=== PATIENT | male | born 1940 | race Caucasian/White ===

== ENCOUNTER → 2023-09-18 13:26 | Outpatient (REF) | payer MEDICARE, SELFPAY | LOC: HO.SL 13:26 | PROVIDERS: PCP Internal Medicine; Visit Provider Internal Medicine | DX: Z13.89 Encounter for screening for other disorder (principal) | CPT/HCPCS: 95806 ==

== ENCOUNTER → 2023-11-15 13:51 | Outpatient (REF) | payer MEDICARE, SELFPAY | LOC: HO.SL 13:51 | PROVIDERS: PCP Internal Medicine; Visit Provider Internal Medicine | DX: G47.33 Obstructive sleep apnea (adult) (pediatric) (principal); R06.83 Snoring; R53.83 Other fatigue | CPT/HCPCS: 95806 ==

== ENCOUNTER → 2023-11-15 19:00 | Outpatient (BNV) | payer MEDICARE, SELFPAY | PROVIDERS: PCP Internal Medicine; Visit Provider Internal Medicine | DX: G47.33 Obstructive sleep apnea (adult) (pediatric) (principal) | CPT/HCPCS: 95806 ==

== ENCOUNTER 2024-03-19 10:11 | Outpatient (AMB) | payer MEDICARE, SELFPAY ==
--- NOTE | 2024-03-19 10:12 | A.OFFVIS_ITS ---
Vital Signs 03/19/24 10:15 Height 5 ft 9 in Weight 174 lb 2.643 oz BMI 25.7 BP 112/58 L Blood Pressure Location Rt brachial Position Sitting Respiration 14 Pulse 70 Pulse Source Pulse Oximeter Pulse Oximetry (%) 95 Oxygen Delivery Method Room Air Intake Visit Reasons: Sleep apnea Intake Note: Patient comes in for initial visit. Accompanied by: Spouse Allergies No Known Allergies Allergy (Verified 03/19/24 10:48) Medication List - Last Reconciled 03/19/24 by Mary Kate Tilley MD gabapentin 300 mg PO TID irbesartan 75 mg PO QAM omeprazole 20 mg PO QAM simvastatin 40 mg PO QPM Do you need a note to return to daycare/school/sports/work: No HPI HPI Sleep apnea: Details: 83 years old gentleman, is here being seen for the 1st time in relation to his sleep. According to his he has been snoring heavy at nighttime for the last 20+ years. Lately it is getting more pronounced, to the point that she has moved to a different room for sleeping. He claims that he sleeps throughout the night but according to his he can stay in the bed for 10 hours when when he wakes up he is still tired. He had COVID about a year ago and he has been diagnosed to have long haul COVID symptoms. His thinks that the nonspecific residual symptoms may be aggravated by his poor sleep. Anyway during the daytime he has tendency to take a nap in the afternoon , and go to bed early. He had a sleep study performed in November of this year and the results will be described below. He is being treated for mild hypertension, GERD symptoms and hyperlipidemia. [facility] Medical History (Updated 03/19/24 @ 11:00 by Mary Kate Tilley MD) JEROD (obstructive sleep apnea) Retrognathia Social History Patient Tobacco Use Status: Never used Tobacco Review of Systems Const All systems reviewed & are unremarkable except as noted in HPI and below Reports snoring (Heavy snoring) Eyes Reports no additional complaints ENT Reports no additional complaints Card Denies chest pain, Denies syncope, Denies irregular heart rhythm, Denies leg edema and Denies dyspnea on exertion Resp Reports no additional complaints, Denies dyspnea on exertion, Reports snoring (Heavy snoring) and Denies wheezing GI Reports heartburn (GERD symptoms being controlled with omeprazole) Reports no additional complaints Musc Reports no additional complaints Skin/Breast Reports system reviewed and no additional complaints, except as documented Neuro Reports no additional complaints and Denies syncope Psych Reports no additional complaints Endo Reports no additional complaints Aller/Immun Denies wheezing Physical Exam Vital Signs: Last Vital Signs Pulse 70 03/19/24 10:15 Resp 14 03/19/24 10:15 BP 112/58 L 03/19/24 10:15 Pulse Ox 95 03/19/24 10:15 Oxygen Delivery Method Room Air 03/19/24 10:15 BMI result Body Mass Index 25.7 Const General: healthy appearing, comfortable, no acute distress, alert and awake Orientation/consciousness: patient oriented x3 HEENT Head: Yes normal to inspection General nose exam: No nasal polyps present and No nasal discharge present Face and sinus: Yes sinuses nontender Mouth: oropharynx abnormals (Slight narrowing of the oropharynx, Mallampati class 3) Teeth and gingiva: other (retroganthia of the lower jaw ) Throat: Yes posterior oropharynx normal Eyes General: appearance normal, both eyes and all related structures Neck Neck: Yes normal visual inspection, Yes no lymphadenopathy, Yes trachea midline, Yes no JVD and Yes other (Neck circumference 15-1/2 inch) Thyroid: Thyroid normal Chest Chest palpation & inspection: normal inspection of the chest, normal palpation of entire chest wall and no tenderness Resp Effort & Inspection: normal respiratory effort Auscultation: clear to auscultation bilaterally, no crackles and wheezes Cardio Palpation: normal PMI Rate: regular rate Rhythm: regular rhythm Heart sounds: no gallops and no murmurs Peripheral pulses: Peripheral pulses 2+ throughout GI Palpation (GI): Soft to palpation, nontender, No hepatosplenomegaly present and no masses Auscultation: normal bowel sounds Back/Spine/Pelvis Thoracic/Lumbar Spine: thoracic and lumbar spine normal to inspection Skin General skin exam: no rashes or lesions noted Neuro General: patient oriented x3 and no focal motor deficits Cranial nerves: Yes CN's II-XII intact bilaterally Extrem General: Yes normal to inspection, Yes no clubbing, cyanosis or edema and Yes no calf tenderness Psych Speech and movement: Normal speech and movement present Results Reviewed Results Reviewed: Home-based sleep study on 11/15/2023 showed the following: Total sleep time AHI 27 snoring for 15% of the sleep time. And nocturnal hypoxemia with average O2 sat 91% lowest O2 sat 74% and O2 sat below 88% for 32 minutes These results are consistent with moderate lease severe obstructive sleep apnea Assessment & Plan Assessment & Plan (1) Retrognathia: Comment: This gentleman is not overly obese. 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 Code(s): M26.19 - Other specified anomalies of jaw-cranial base relationship Category: Medical Plan: Explained to the patient, .as the cause of his sleep apnea (2) JEROD (obstructive sleep apnea): Comment: As per home-based sleep study he has moderately severe obstructive sleep apnea, with minimal nocturnal hypoxemia. Code(s): G47.33 - Obstructive sleep apnea (adult) (pediatric) Category: Medical Plan: Patient was educated about sleep apnea, . The reason for sleep apnea in his case He was educated about the need for treating .sleep apnea Various modalities. For the treatment were explained to him The 1st step is to use CPAP therapy, about which he was fully educated. He agrees. To go on CPAP therapy Orders are being sent for auto Pap mode pressure setting 6-20 cm using a fullf manasa mask and heated humidity. Patient would be followed up closely to monitor his compliance and benefits . Coding Level of Care Code New Pt Level 4 (59036) Diagnoses Retrognathia M26.19 JEROD (obstructive sleep apnea) G47.33
[2024-03-19 10:15] VITALS: BP 112/58; PULSE 70; RESP 14; O2SAT 95; BMI 25.7
== END 2024-03-19 10:50 | disposition home or self-care (01) ==
PROVIDERS: PCP Internal Medicine; Visit Provider Internal Medicine
DX: G47.33 Obstructive sleep apnea (adult) (pediatric) (principal); M26.19 Other specified anomalies of jaw-cranial base relationship
CPT/HCPCS: 99214

== ENCOUNTER → 2024-03-19 10:11 | Outpatient (BNVA) | payer MEDICARE, SELFPAY | PROVIDERS: PCP Internal Medicine; Visit Provider Internal Medicine | DX: M26.19 Other specified anomalies of jaw-cranial base relationship (principal); G47.33 Obstructive sleep apnea (adult) (pediatric) | CPT/HCPCS: 99212 ==

== ENCOUNTER 2024-05-14 09:43 | Outpatient (AMB) | payer MEDICARE, SELFPAY ==
[2024-05-14 09:46] VITALS: BP 140/76; PULSE 63; O2SAT 94; BMI 25.7
--- NOTE | 2024-05-14 09:46 | MHC.OFFVIS ---
Vital Signs 05/14/24 09:46 Height 5 ft 9 in Weight 174 lb 2.643 oz BMI 25.7 BP 140/76 H Blood Pressure Location Rt brachial Position Sitting Pulse 63 Pulse Source Pulse Oximeter Pulse Oximetry (%) 94 Oxygen Delivery Method Room Air Intake Visit Reasons: Sleep apnea Allergies No Known Allergies Allergy (Verified 05/14/24 10:13) Medication List - Last Reconciled 05/14/24 by Mary Kate Tilley MD gabapentin 300 mg PO TID irbesartan 75 mg PO QAM omeprazole 20 mg PO QAM simvastatin 40 mg PO QPM Do you need a note to return to daycare/school/sports/work: No HPI HPI Sleep apnea: Details: Mr. Mazariegos , 83 years old very pleasant gentleman, is a case severe obstructive sleep apnea on basis of retroganthia. He has been provided with the CPAP device and a nasal mask, which he has been using very regularly over the last 30 nights. According to his she does not hear any snoring even though she sleeps in a different room. He sleeps good throughout the night but does have feeling of his mouth open and he has dryness of the mouth on waking up in the morning. He has tried chinstrap but that gives a feeling of suffocating. He does check his numbers in the morning and he still has some residual apneas. [facility] Medical History (Updated 05/14/24 @ 10:24 by Mary Kate Tilley MD) Treatment-emergent central sleep apnea JEROD (obstructive sleep apnea) Retrognathia Social History Patient Tobacco Use Status: Never used Tobacco Review of Systems Const All systems reviewed & are unremarkable except as noted in HPI and below Reports snoring (Heavy snoring) Eyes Reports no additional complaints ENT Reports no additional complaints Card Denies chest pain, Denies syncope, Denies irregular heart rhythm, Denies leg edema and Denies dyspnea on exertion Resp Reports no additional complaints, Denies dyspnea on exertion, Reports snoring (Heavy snoring) and Denies wheezing GI Reports heartburn (GERD symptoms being controlled with omeprazole) Reports no additional complaints Musc Reports no additional complaints Skin/Breast Reports system reviewed and no additional complaints, except as documented Neuro Reports no additional complaints and Denies syncope Psych Reports no additional complaints Endo Reports no additional complaints Aller/Immun Denies wheezing Physical Exam Vital Signs: Last Vital Signs Pulse 63 05/14/24 09:46 BP 140/76 H 05/14/24 09:46 Pulse Ox 94 05/14/24 09:46 Oxygen Delivery Method Room Air 05/14/24 09:46 BMI result Body Mass Index 25.7 Const General: healthy appearing, comfortable, no acute distress, alert and awake Orientation/consciousness: patient oriented x3 HEENT Head: Yes normal to inspection General nose exam: No nasal polyps present and No nasal discharge present Face and sinus: Yes sinuses nontender Mouth: oropharynx abnormals (Slight narrowing of the oropharynx, Mallampati class 3) Teeth and gingiva: other (retroganthia of the lower jaw ) Throat: Yes posterior oropharynx normal Eyes General: appearance normal, both eyes and all related structures Neck Neck: Yes normal visual inspection, Yes no lymphadenopathy, Yes trachea midline, Yes no JVD and Yes other (Neck circumference 15-1/2 inch) Thyroid: Thyroid normal Chest Chest palpation & inspection: normal inspection of the chest, normal palpation of entire chest wall and no tenderness Resp Effort & Inspection: normal respiratory effort Auscultation: clear to auscultation bilaterally, no crackles and wheezes Cardio Palpation: normal PMI Rate: regular rate Rhythm: regular rhythm Heart sounds: no gallops and no murmurs Peripheral pulses: Peripheral pulses 2+ throughout GI Palpation (GI): Soft to palpation, nontender, No hepatosplenomegaly present and no masses Auscultation: normal bowel sounds Back/Spine/Pelvis Thoracic/Lumbar Spine: thoracic and lumbar spine normal to inspection Skin General skin exam: no rashes or lesions noted Neuro General: patient oriented x3 and no focal motor deficits Cranial nerves: Yes CN's II-XII intact bilaterally Extrem General: Yes normal to inspection, Yes no clubbing, cyanosis or edema and Yes no calf tenderness Psych Speech and movement: Normal speech and movement present Results Reviewed Results Reviewed: Compliance report for the last 30 nights is reviewed. He has used 30/30 nights., 100% Average use it per night 8 hours 18 minutes. The pressure used is mostly. 9-10 cm .There is no significant air leak He still has residual AHI of 24 mostly central. Assessment & Plan Assessment & Plan (1) Retrognathia: Comment: This gentleman is not overly obese. 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 Code(s): M26.19 - Other specified anomalies of jaw-cranial base relationship Category: Medical Plan: Patient has been educated and he is where of the basic cause of his sleep apnea. (2) JEROD (obstructive sleep apnea): Comment: As per home-based sleep study he has moderately severe obstructive sleep apnea, with minimal nocturnal hypoxemia. He is using CPAP regularly. With the nose mask This seems to be mouth breathing causing dryness of his mouth, and may be partly responsible for residual AHI events. However, there is evidence of treatment emergent central apnea Code(s): G47.33 - Obstructive sleep apnea (adult) (pediatric) Category: Medical Plan: Will change the mask to fullface mask. Continue. Using humidification regularly Check his compliance in a month. If he still has residual obstructive/ central apneas then he would need to be brought to sleep lab, for CPAP titration and possible use of ASV mode. (3) Treatment-emergent central sleep apnea: Comment: He does have significant amount of residual apneas, in spite of using CPAP regularly. It seems that most of his residual apnea activity is secondary to central sleep apneas. Code(s): G47.39 - Other sleep apnea Category: Medical Plan: I advised him to keep on using the CPAP for 1 more month, using fullface mask. If he continues to have significant residual central apneas then he would need to be brought to sleep lab for CPAP titration and use of ASV mode. Coding Level of Care Code Est Pt Level 3 (43938) Diagnoses Retrognathia M26.19 JEROD (obstructive sleep apnea) G47.33 Treatment-emergent central sleep apnea G47.39
== END 2024-05-14 10:14 | disposition home or self-care (01) ==
PROVIDERS: PCP Internal Medicine; Visit Provider Internal Medicine
DX: M26.19 Other specified anomalies of jaw-cranial base relationship (principal); G47.33 Obstructive sleep apnea (adult) (pediatric); G47.39 Other sleep apnea
CPT/HCPCS: 99213

== ENCOUNTER → 2024-05-14 09:43 | Outpatient (BNVA) | payer MEDICARE, SELFPAY | PROVIDERS: PCP Internal Medicine; Visit Provider Internal Medicine | DX: M26.19 Other specified anomalies of jaw-cranial base relationship (principal); G47.33 Obstructive sleep apnea (adult) (pediatric); G47.39 Other sleep apnea | CPT/HCPCS: 99212 ==

== ENCOUNTER 2024-06-13 10:10 | Outpatient (AMB) | payer MEDICARE, SELFPAY ==
--- NOTE | 2024-06-13 10:36 | A.OFFVIS_ITS ---
Vital Signs 06/13/24 10:39 Height 5 ft 9 in Weight 176 lb 5.917 oz BMI 26.0 BP 126/70 Blood Pressure Location Rt brachial Position Sitting Pulse 64 Pulse Source Pulse Oximeter Pulse Oximetry (%) 96 Oxygen Delivery Method Room Air Intake Visit Reasons: Sleep apnea Valve Mechanic Required: No Computer Technology Instructor: Computer Technology Instructor offered & declined Accompanied by: Spouse Allergies No Known Allergies Allergy (Verified 06/13/24 10:57) Medication List - Last Reconciled 06/13/24 by Mary Kate Tilley MD gabapentin 300 mg PO TID irbesartan 75 mg PO QAM omeprazole 20 mg PO QAM simvastatin 40 mg PO QPM Do you need a note to return to daycare/school/sports/work: No HPI HPI Sleep apnea: Details: THIS 83 YEARS OLD GENTLEMAN OTHERWISE IN GOOD HEALTH HAS MIXED SLEEP APNEA . HE IS USING CPAP VERY REGULARLY AT NIGHT AND CLAIMS THAT IT DOES MAKE HIM SLEEP BETTER. HOWEVER HE CONTINUES TO HAVE DAYTIME FATIGUE, AND SOME SLEEPINESS. HE IS ON GABAPENTIN 300 MG T.I.D. FOR CONTROL OF POST HERPETIC NEURALGIA. DOES NOT TAKE ANY NARCOTICS DENIES USE OF ANY ALCOHOL AT NIGHT PFSH Medical History (Updated 06/13/24 @ 11:20 by Mary Kate Tilley MD) Treatment-emergent central sleep apnea JEROD (obstructive sleep apnea) Retrognathia Social History (Updated 06/13/24 @ 10:38 by Gail Todd LPN) Patient Tobacco Use Status: Never used Tobacco Review of Systems Const All systems reviewed & are unremarkable except as noted in HPI and below Reports snoring (Heavy snoring) Eyes Reports no additional complaints ENT Reports no additional complaints Card Denies chest pain, Denies syncope, Denies irregular heart rhythm, Denies leg edema and Denies dyspnea on exertion Resp Reports no additional complaints, Denies dyspnea on exertion, Reports snoring (Heavy snoring) and Denies wheezing GI Reports heartburn (GERD symptoms being controlled with omeprazole) Reports no additional complaints Musc Reports no additional complaints Skin/Breast Reports system reviewed and no additional complaints, except as documented Neuro Reports no additional complaints and Denies syncope Psych Reports no additional complaints Endo Reports no additional complaints Aller/Immun Denies wheezing Physical Exam Vital Signs: Last Vital Signs Pulse 64 06/13/24 10:39 BP 126/70 06/13/24 10:39 Pulse Ox 96 06/13/24 10:39 Oxygen Delivery Method Room Air 06/13/24 10:39 BMI result Body Mass Index 26.0 Const General: healthy appearing, comfortable, no acute distress, alert and awake Orientation/consciousness: patient oriented x3 HEENT Head: Yes normal to inspection General nose exam: No nasal polyps present and No nasal discharge present Face and sinus: Yes sinuses nontender Mouth: oropharynx abnormals (Slight narrowing of the oropharynx, Mallampati class 3) Teeth and gingiva: other (retroganthia of the lower jaw ) Throat: Yes posterior oropharynx normal Eyes General: appearance normal, both eyes and all related structures Neck Neck: Yes normal visual inspection, Yes no lymphadenopathy, Yes trachea midline, Yes no JVD and Yes other (Neck circumference 15-1/2 inch) Thyroid: Thyroid normal Chest Chest palpation & inspection: normal inspection of the chest, normal palpation of entire chest wall and no tenderness Resp Effort & Inspection: normal respiratory effort Auscultation: clear to auscultation bilaterally, no crackles and wheezes Cardio Palpation: normal PMI Rate: regular rate Rhythm: regular rhythm Heart sounds: no gallops and no murmurs Peripheral pulses: Peripheral pulses 2+ throughout GI Palpation (GI): Soft to palpation, nontender, No hepatosplenomegaly present and no masses Auscultation: normal bowel sounds Back/Spine/Pelvis Thoracic/Lumbar Spine: thoracic and lumbar spine normal to inspection Skin General skin exam: no rashes or lesions noted Neuro General: patient oriented x3 and no focal motor deficits Cranial nerves: Yes CN's II-XII intact bilaterally Extrem General: Yes normal to inspection, Yes no clubbing, cyanosis or edema and Yes no calf tenderness Psych Speech and movement: Normal speech and movement present Results Reviewed Results Reviewed: COMPLIANCE REPORT IS REVIEWED AND IT IS EXCELLENT USING 71-90 NIGHTS,, 79%, HE ACTUALLY STARTED ON APRIL 03 AND SINCE THEN IS USING EVERY NIGHT. PRESSURE USED 10-12 CM WHICH IS WELL WITHIN THE RANGE, THERE IS ONLY MINIMAL DEGREE OF AIR LEAK, RESIDUAL AHI IS STILL 25 , MOSTLY DUE TO CENTRAL APNEAS Assessment & Plan Assessment & Plan (1) JEROD (obstructive sleep apnea): Comment: As per home-based sleep study he has moderately severe obstructive sleep apnea, with minimal nocturnal hypoxemia. He is using CPAP regularly WITH FULL FACE MASK . Still has some dryness of the mouth, and uses saline spray in the nose p.r.n.. However, there is evidence of treatment emergent central apnea Code(s): G47.33 - Obstructive sleep apnea (adult) (pediatric) Category: Medical Plan: Discussed with him about treatment emergent central sleep apnea, Discussed about CPAP titration with ASV MODE, TO ELIMINATE THE CENTRAL APNEAS. HIS DAYTIME FATIGUE AND SLEEPINESS MAY BE PARTLY DUE TO SIDE EFFECT OF GABAPENTIN WHICH HE TAKES TO ALLEVIATE PHN COST PAIN. HE WANTS TO TRY TO WEAN OFF GABAPENTIN SLOWLY, AND THEN IF HE STILL HAS RESIDUAL SLEEP APNEA THEN HE WOULD AGREE TO HAVE CPAP TITRATION WITH ASV MODE. (2) Retrognathia: Comment: This gentleman is not overly obese. 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 Code(s): M26.19 - Other specified anomalies of jaw-cranial base relationship Category: Medical Plan: EXPLAINED TO THE PATIENT. (3) Treatment-emergent central sleep apnea: Comment: He does have significant amount of residual apneas, in spite of using CPAP regularly. It seems that most of his residual apnea activity is secondary to central sleep apneas. Code(s): G47.39 - Other sleep apnea Category: Medical Plan: C DISCUSS UNDER JEROD Coding Level of Care Code Est Pt Level 3 (88302) Diagnoses JEROD (obstructive sleep apnea) G47.33 Retrognathia M26.19 Treatment-emergent central sleep apnea G47.39
[2024-06-13 10:39] VITALS: BP 126/70; PULSE 64; O2SAT 96; BMI 26.0
== END 2024-06-13 11:16 | disposition home or self-care (01) ==
LOC: HO.HPS 10:11
PROVIDERS: PCP Internal Medicine; Visit Provider Internal Medicine
DX: G47.33 Obstructive sleep apnea (adult) (pediatric) (principal); M26.19 Other specified anomalies of jaw-cranial base relationship; G47.39 Other sleep apnea
CPT/HCPCS: 99213

== ENCOUNTER → 2024-06-13 10:10 | Outpatient (BNVA) | payer MEDICARE, SELFPAY | PROVIDERS: PCP Internal Medicine; Visit Provider Internal Medicine | DX: G47.33 Obstructive sleep apnea (adult) (pediatric) (principal); G47.39 Other sleep apnea; M26.19 Other specified anomalies of jaw-cranial base relationship | CPT/HCPCS: 99212 ==

== ENCOUNTER 2024-08-13 10:50 | Outpatient (AMB) | payer MEDICARE, SELFPAY ==
--- NOTE | 2024-08-13 11:28 | A.OFFVIS_ITS ---
Vital Signs 08/13/24 11:29 Height 5 ft 9 in Weight 177 lb 7.554 oz BMI 26.2 BP 130/68 Blood Pressure Location Lt brachial Position Sitting Pulse 59 Pulse Source Pulse Oximeter Pulse Oximetry (%) 96 Oxygen Delivery Method Room Air Intake Visit Reasons: Sleep apnea Intake Note: pt is here for follow up and states he is very dry at night, and has events going on, and leaks. right now using full face under nose mask, and air is blowing out the sides at night. Finisher Accordion Required: No Allergies No Known Allergies Allergy (Verified 08/13/24 12:03) Medication List - Last Reconciled 08/13/24 by Mary Kate Tilley MD gabapentin 300 mg PO TID irbesartan 75 mg PO QAM omeprazole 20 mg PO QAM simvastatin 40 mg PO QPM Do you need a note to return to daycare/school/sports/work: No HPI HPI Sleep apnea: Details: THIS 84 YEARS OLD GENTLEMAN, COMES FOR FOLLOW-UP FOR HIS SLEEP APNEA. HE IS USING CPAP REGULARLY EVERY NIGHT, BUT STILL WAKES UP IN THE MORNING FEELING UN REFRESHED, AND STAYS SOMEWHAT TIRED AND SLEEPY DURING THE DAYTIME. HE TRY TO CUT DOWN THE DOSE OF GABAPENTIN TO 300 MG TWICE A DAY, AND STARTED FEELING WORSE, SO WENT BACK TO 300 MG T.I.D.. HE USES HIS CPAP REGULARLY EVERY NIGHT AND SLEEPS 6-7 HOURS PER NIGHT. [facility] Medical History Treatment-emergent central sleep apnea JEROD (obstructive sleep apnea) Retrognathia Social History Patient Tobacco Use Status: Never used Tobacco Review of Systems Const All systems reviewed & are unremarkable except as noted in HPI and below Reports snoring (Heavy snoring) Eyes Reports no additional complaints ENT Reports no additional complaints Card Denies chest pain, Denies syncope, Denies irregular heart rhythm, Denies leg edema and Denies dyspnea on exertion Resp Reports no additional complaints, Denies dyspnea on exertion, Reports snoring (Heavy snoring) and Denies wheezing GI Reports heartburn (GERD symptoms being controlled with omeprazole) Reports no additional complaints Musc Reports no additional complaints Skin/Breast Reports system reviewed and no additional complaints, except as documented Neuro Reports no additional complaints and Denies syncope Psych Reports no additional complaints Endo Reports no additional complaints Aller/Immun Denies wheezing Physical Exam Vital Signs: Last Vital Signs Pulse 59 08/13/24 11:29 BP 130/68 08/13/24 11:29 Pulse Ox 96 08/13/24 11:29 Oxygen Delivery Method Room Air 08/13/24 11:29 BMI result Body Mass Index 26.2 Const General: healthy appearing, comfortable, no acute distress, alert and awake Orientation/consciousness: patient oriented x3 HEENT Head: Yes normal to inspection General nose exam: No nasal polyps present and No nasal discharge present Face and sinus: Yes sinuses nontender Mouth: oropharynx abnormals (Slight narrowing of the oropharynx, Mallampati class 3) Teeth and gingiva: other (retroganthia of the lower jaw ) Throat: Yes posterior oropharynx normal Eyes General: appearance normal, both eyes and all related structures Neck Neck: Yes normal visual inspection, Yes no lymphadenopathy, Yes trachea midline, Yes no JVD and Yes other (Neck circumference 15-1/2 inch) Thyroid: Thyroid normal Chest Chest palpation & inspection: normal inspection of the chest, normal palpation of entire chest wall and no tenderness Resp Effort & Inspection: normal respiratory effort Auscultation: clear to auscultation bilaterally, no crackles and wheezes Cardio Palpation: normal PMI Rate: regular rate Rhythm: regular rhythm Heart sounds: no gallops and no murmurs Peripheral pulses: Peripheral pulses 2+ throughout GI Palpation (GI): Soft to palpation, nontender, No hepatosplenomegaly present and no masses Auscultation: normal bowel sounds Back/Spine/Pelvis Thoracic/Lumbar Spine: thoracic and lumbar spine normal to inspection Skin General skin exam: no rashes or lesions noted Neuro General: patient oriented x3 and no focal motor deficits Cranial nerves: Yes CN's II-XII intact bilaterally Extrem General: Yes normal to inspection, Yes no clubbing, cyanosis or edema and Yes no calf tenderness Psych Speech and movement: Normal speech and movement present Results Reviewed Results Reviewed: COMPLIANCE REPORT IS REVIEWED. USED CPAP FOR 29/30 NIGHTS, 97%, AVERAGE USE IT PER NIGHT 7 HOURS, RESIDUAL AHI 22.3 AND MOSTLY DUE TO CENTRAL APNEAS Assessment & Plan Assessment & Plan (1) Retrognathia: Comment: This gentleman is not overly obese. 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 Code(s): M26.19 - Other specified anomalies of jaw-cranial base relationship Category: Medical Plan: Patient is aware of this issue but. There is no treatment for that (2) JEROD (obstructive sleep apnea): Comment: As per home-based sleep study he has moderately severe obstructive sleep apnea, with minimal nocturnal hypoxemia. He is using CPAP regularly WITH FULL FACE MASK . Still has some dryness of the mouth, and uses saline spray in the nose p.r.n.. However, there is evidence of treatment emergent central apnea Code(s): G47.33 - Obstructive sleep apnea (adult) (pediatric) Category: Medical Plan: Patient has rather severe degree of treatment emergent central apnea. He has residual AHI of 22. This is the reason for his daytime fatigue/somnolence (3) Treatment-emergent central sleep apnea: Comment: He he needs to have CPAP titration in the sleep lab for using ASV mode, to overcome the central sleep apnea. Had a detailed discussion with him and his about the need for CPAP titration in the sleep lab and using the different mode of treatment. Patient is quite educated and intelligence, and understands the discussion. He has finally consented to undergo CPAP titration study. Code(s): G47.39 - Other sleep apnea Category: Medical Plan: He will be scheduled for CPAP titration study with ASV mode. Coding Level of Care Code Est Pt Level 3 (47076) Diagnoses Retrognathia M26.19 JEROD (obstructive sleep apnea) G47.33 Treatment-emergent central sleep apnea G47.39
[2024-08-13 11:29] VITALS: BP 130/68; PULSE 59; O2SAT 96; BMI 26.2
== END 2024-08-13 11:59 | disposition home or self-care (01) ==
PROVIDERS: PCP Internal Medicine; Visit Provider Internal Medicine
DX: M26.19 Other specified anomalies of jaw-cranial base relationship (principal); G47.33 Obstructive sleep apnea (adult) (pediatric); G47.39 Other sleep apnea
CPT/HCPCS: 99213

== ENCOUNTER → 2024-08-13 10:50 | Outpatient (BNVA) | payer MEDICARE, SELFPAY | PROVIDERS: PCP Internal Medicine; Visit Provider Internal Medicine | DX: G47.33 Obstructive sleep apnea (adult) (pediatric) (principal); G47.39 Other sleep apnea; M26.19 Other specified anomalies of jaw-cranial base relationship | CPT/HCPCS: 99212 ==

== ENCOUNTER → 2024-08-30 20:30 | Outpatient (REF) | payer MEDICARE, SELFPAY | LOC: HO.SL 20:30 | PROVIDERS: PCP Internal Medicine; Visit Provider Internal Medicine | DX: G47.33 Obstructive sleep apnea (adult) (pediatric) (principal) | CPT/HCPCS: 95811 ==

== ENCOUNTER → 2024-08-30 21:31 | Outpatient (BNV) | payer MEDICARE, SELFPAY | PROVIDERS: PCP Internal Medicine; Visit Provider Internal Medicine | DX: G47.33 Obstructive sleep apnea (adult) (pediatric) (principal) | CPT/HCPCS: 95811 ==

== ENCOUNTER 2024-10-14 10:22 | Outpatient (AMB) | payer MEDICARE, SELFPAY ==
[2024-10-14 11:12] VITALS: BP 110/64; PULSE 70; O2SAT 91; BMI 25.1
--- NOTE | 2024-10-14 11:12 | A.OFFVIS_ITS ---
Vital Signs 10/14/24 11:12 Height 5 ft 9 in Weight 169 lb 12.095 oz BMI 25.1 BP 110/64 Blood Pressure Location Lt brachial Position Sitting Pulse 70 Pulse Source Pulse Oximeter Pulse Oximetry (%) 91 L Oxygen Delivery Method Room Air Intake Visit Reasons: Sleep apnea Intake Note: pt is here for follow up of sleep study, still using the cpap, but feeling fatigue all day, pt did have an oxygen level of 91 at first, did some deep breathing and brought up to 94. recently dx with anemia Certified Endoscopy Technician Required: No Allergies No Known Allergies Allergy (Verified 10/14/24 11:42) Medication List - Last Reconciled 10/14/24 by Mary Kate Tilley MD gabapentin 300 mg PO TID irbesartan 75 mg PO QAM omeprazole 20 mg PO QAM simvastatin 40 mg PO QPM Do you need a note to return to daycare/school/sports/work: No HPI HPI Sleep apnea: Details: THIS 84 YEARS OLD VERY PLEASANT GENTLEMAN IS A CASE OF OBSTRUCTIVE SLEEP APNEA. HE IS BEING TREATED WITH CPAP, ON AUTO PAP MODE, AND HE CONTINUES TO HAVE DAYTIME FATIGUE AND SLEEPINESS. WITH THE CURRENT SETTINGS OF HIS CPAP THERAPY HE STILL HAS SIGNIFICANT RESIDUAL OBSTRUCTIVE WELL CENTRAL APNEA EVENTS. HE HAS JUST UNDERGONE CPAP TITRATION STUDY IN THE SLEEP LAB THE RESULTS WILL BE DESCRIBED BELOW. HE IS VERY COMPLIANT, AND KEEPS THE MASK ON AT LEAST FOR 6 HOURS EVERY NIGHT. THE ISSUE HAS BEEN, A HIGH LEVEL OF RESIDUAL AHI. [facility] Medical History Treatment-emergent central sleep apnea JEROD (obstructive sleep apnea) Retrognathia Social History Patient Tobacco Use Status: Never used Tobacco Review of Systems Const All systems reviewed & are unremarkable except as noted in HPI and below Reports snoring (Heavy snoring) Eyes Reports no additional complaints ENT Reports no additional complaints Card Denies chest pain, Denies syncope, Denies irregular heart rhythm, Denies leg edema and Denies dyspnea on exertion Resp Reports no additional complaints, Denies dyspnea on exertion, Reports snoring (Heavy snoring) and Denies wheezing GI Reports heartburn (GERD symptoms being controlled with omeprazole) Reports no additional complaints Musc Reports no additional complaints Skin/Breast Reports system reviewed and no additional complaints, except as documented Neuro Reports no additional complaints and Denies syncope Psych Reports no additional complaints Endo Reports no additional complaints Aller/Immun Denies wheezing Physical Exam Vital Signs: Last Vital Signs Pulse 70 10/14/24 11:12 BP 110/64 10/14/24 11:12 Pulse Ox 91 L 10/14/24 11:12 Oxygen Delivery Method Room Air 10/14/24 11:12 BMI result Body Mass Index 25.1 Const General: healthy appearing, comfortable, no acute distress, alert and awake Orientation/consciousness: patient oriented x3 HEENT Head: Yes normal to inspection General nose exam: No nasal polyps present and No nasal discharge present Face and sinus: Yes sinuses nontender Mouth: oropharynx abnormals (Slight narrowing of the oropharynx, Mallampati class 3) Teeth and gingiva: other (retroganthia of the lower jaw ) Throat: Yes posterior oropharynx normal Eyes General: appearance normal, both eyes and all related structures Neck Neck: Yes normal visual inspection, Yes no lymphadenopathy, Yes trachea midline, Yes no JVD and Yes other (Neck circumference 15-1/2 inch) Thyroid: Thyroid normal Chest Chest palpation & inspection: normal inspection of the chest, normal palpation of entire chest wall and no tenderness Resp Effort & Inspection: normal respiratory effort Auscultation: clear to auscultation bilaterally, no crackles and wheezes Cardio Palpation: normal PMI Rate: regular rate Rhythm: regular rhythm Heart sounds: no gallops and no murmurs Peripheral pulses: Peripheral pulses 2+ throughout GI Palpation (GI): Soft to palpation, nontender, No hepatosplenomegaly present and no masses Auscultation: normal bowel sounds Back/Spine/Pelvis Thoracic/Lumbar Spine: thoracic and lumbar spine normal to inspection Skin General skin exam: no rashes or lesions noted Neuro General: patient oriented x3 and no focal motor deficits Cranial nerves: Yes CN's II-XII intact bilaterally Extrem General: Yes normal to inspection, Yes no clubbing, cyanosis or edema and Yes no calf tenderness Psych Speech and movement: Normal speech and movement present Results Reviewed Results Reviewed: WITH THE PRESENT SETTINGS HIS THE COMPLIANCE REPORT INDICATES THAT HE STILL HAS SIGNIFICANT RESIDUAL AHI, 22.6, THIS IS DUE TO EQUAL AMOUNT OF OBSTRUCTIVE WILL WELL CENTRAL APNEA. THE IN SLEEP LAB TITRATION STUDY SHOWS THAT, HE RESPONDED WELL TO FULLFACE MASK AND CPAP OF 13 CM. HE DID NOT NEED TO GO TO BIPAP OR ASV MODE. Assessment & Plan Assessment & Plan (1) JEROD (obstructive sleep apnea): Comment: As per home-based sleep study he has moderately severe obstructive sleep apnea, with minimal nocturnal hypoxemia. HE WAS USING CPAP WITH AUTO PAP MODE REGULARLY, BUT HAD RESIDUAL AHI SECONDARY TO OBSTRUCTIVE WELL CENTRAL APNEAS. NOW HE UNDERWENT CPAP TITRATION STUDY IN THE SLEEP LAB, AND DID VERY WELL WITH HIS CPAP SETTING OF 13 CM.. Code(s): G47.33 - Obstructive sleep apnea (adult) (pediatric) Category: Medical Plan: THE SETTINGS ARE CHANGED TO CPAP OF 13 CM USING FULLFACE MASK. ADVISED TO KEEP THE STRAPS TIGHT (2) Treatment-emergent central sleep apnea: Comment: NOTED ABOVE HE HAD TREATMENT EMERGENT CENTRAL APNEAS CAUSING HIGH RESIDUAL AHI. DURING CPAP TITRATION IN THE SLEEP LAB THE CENTRAL APNEAS WERE ALSO ELIMINATED WITH PRESSURE OF 13 CM, AND HE DID NOT NEED BIPAP OR ASV MODE Code(s): G47.39 - Other sleep apnea Category: Medical Plan: NOTED UNDER OBSTRUCTIVE SLEEP APNEA Coding Level of Care Code Est Pt Level 3 (85838) Diagnoses JEROD (obstructive sleep apnea) G47.33 Treatment-emergent central sleep apnea G47.39
--- OUTSIDE RECORDS SUMMARY | 2024-10-14 11:41 | XMS_ITS | Encounter Summary ---
Author Organization [facility] Address [address] [address] Phone Care Team Providers Care Loop Sewer Name Role Phone Unavailable Primary Care Provider Unavailabl e Encounter Details Date Type Department Care Team (Late Contact Info) Description 10/02/2024 Orders Only [facility] [address] [address] Froylan Sweeney MD [address] [address] Social History Tobacco Use Types Packs/Day Years Used Date Smoking Tobacco: Never Smokeless Tobacco: Never Alcohol Use Standard Drinks/Week Comments Never 0 (1 standard drink = 0.6 oz pur e alcohol) Sex and Gender Information Value Date Recorded Sex Assigned at Not on file Legal Sex Male 5:13 PM EDT Gender Identity Not on file Sexual Orientation Not on file documented as of this encounter Plan of Treatment Upcoming Encounters Date Type Department Care Team (Late st Contact Info) Description 11/14/2024 1:30 PM EDT Office Visit [facility] [address] [place] [id number] Froylan Sweeney MD [facility] [address] documented as of this encounter Procedures Procedure Name Priority Date/Time Associated Diagnosis Comments PROTEIN / CREATININE RATIO, URINE Routine 10/02/2024 10:24 AM EST VITAMIN D 25 HYDROXY Routine 10/02/2024 10:24 AM EST PROTEIN ELECTROPHORESIS, SERUM Routine 10/02/2024 10:24 AM EST PTH, INTACT Routine 10/02/2024 10:24 AM EST documented in this encounter Results * Protein electrophoresis, serum (10/02/2024 10:24 AM EST) Total Protein 6.6 6.0 - 8.5 g/dL [facility] Albumin 3.9 2.9 - 4.4 g/dL [facility] Ikbrw-4-Woddbusp 0.2 0.0 - 0.4 g/dL [facility] Gpovm-4-Knnaotls 0.7 0.4 - 1.0 g/dL [facility] Beta Globulin 0.9 0.7 - 1.3 g/dL [facility] Gamma Globulin in Serum 0.9 0.4 - 1.8 g/dL [facility] M-Maikel Serum Not Observed Not Observed g/dL [facility] Globulin, Total 2.7 2.2 - 3.9 g/dL [facility] [phone] A/G Ratio 1.4 0.7 - 1.7 [facility] Please note Comment [facility] Comment: Protein electrophoresis scan will follow via computer, mail, or suit attendant delivery. PDF . [facility] [phone] 10/02/2024 10:2 4 AM EST 10/02/2024 us Froylan Sweeney MD LAB BLOOD ORDERABLES Final Resu lt [facility] [address] [place] [address] * PTH, Intact (10/02/2024 10:24 AM EST) PTH 61 15 - 65 pg/mL [facility] 10/02/2024 10:2 4 AM EST 10/02/2024 us Froylan Sweeney MD LAB BLOOD ORDERABLES Final Resu lt Performing Organization Address City/[facility]/ZIP Co de Phone Number [facility] [address] [place] [address] * (ABNORMAL) Vitamin D 25 Hydroxy (10/02/2024 10:24 AM EST) Vitamin D, 25-OH, Total 29.5(L) 30.0 - 100.0 ng/mL [facility] Comment: Vitamin D deficiency has been defined by the [place] of Medicine and an Endocrine Society practice guideline as a level of serum 25-OH vitamin D less than 20 ng/mL (1,2). The Endocrine Society went on to further define vitamin D insufficiency as a level between 21 and 29 ng/mL (2). 1. IOM ([place] of Medicine). 2010. Dietary reference ?? intakes for calcium and D. [place]: The ?? National Academies Press. 2. Bc MF, Anjum NC, Radha PEOPLES, et al. ?? Evaluation, treatment, and prevention of vitamin D ?? deficiency: an Endocrine Society clinical practice ?? guideline. JCEM. 2010; 96(7):1911-30. 10/02/2024 10:2 4 AM EST 10/02/2024 us Froylan Sweeney MD LAB BLOOD ORDERABLES Final Resu lt [facility] [address] [place] [address] * (ABNORMAL) Protein, Total, Random Urine w/Creatinine (Protein/Creat Ratio) (10/02/2024 10:24 AM EST) Creatinine, Ur 155.4 Not Estab. mg/dL [facility] Protein, Ur 53.2 Not Estab. mg/dL [facility] Urine Protein/Creati nine Ratio 342(H) 0 - 200 mg/g creat [facility] 10/02/2024 10:2 4 AM EST 10/02/2024 us Froylan Sweeney MD LAB URINE ORDERABLES Final Resu lt [facility] [address] [place] [address] documented in this encounter Visit Diagnoses Not on filedocumented in this encounter
--- OUTSIDE RECORDS SUMMARY | 2024-10-14 11:41 | XMS_ITS | Clinical Summary ---
Author Organization [facility] Address [address] [place] [address] Phone Care Team Providers Care Clinical Nutrition Manager Name Role Phone Unavailable Primary Care Provider Unavailabl e Allergies No known active allergies Medications irbesartan (AVAPRO) 75 MG tablet Take 75 mg by mouth every morning 03/19/2024 Active gabapentin (NEURONTIN) 300 MG capsule Take 300 mg by mouth in the morning and 300 mg at noon and 300 mg in the evening. 03/29/2024 Active Active Problems Problem Noted Date Diagnosed Date Hypertensive chronic kidney disease stage 3 12/2023 Pure hypercholesterolemia 04/11/2024 Chronic kidney disease stage 3B Encounters Date Type Department Care Team Description 10/02/2024 Orders Only [facility] [place] [id number] [phone] Froylan Sweeney MD 08/13/2024 Orders Only [facility] [address] [place] [phone] Froylan Sweeney MD Chronic kidney disease stage 3B (HCC); Hypertensive chronic kidney disease stage 3; Pure hypercholesterolemia, not otherwise specified from Last 3 Months Family History Relation Status Comments Father Mother Social History Tobacco Use Types Packs/Day Years Used Date Smoking Tobacco: Never Smokeless Tobacco: Never Tobacco Cessation:Counseling Given: Not Answered Alcohol Use Standard Drinks/Week Comments Never 0 (1 standard drink = 0.6 oz pur e alcohol) Sex and Gender Information Value Date Recorded Sex Assigned at Not on file Legal Sex Male 5:13 PM EDT Gender Identity Not on file Sexual Orientation Not on file Last Filed Vital Signs Vital Sign Reading Time Taken Comments Blood Pressure - - Pulse - - Temperature - - Respiratory Rate - - Oxygen Saturation - - Inhaled Oxygen Concentration - - Weight 76.2 kg (168 lb) 04/11/2024 3:31 PM EDT Height - - Body Mass Index - - Plan of Treatment Upcoming Encounters Date Type Department Care Team (Late st Contact Info) Description 11/14/2024 1:30 PM EDT [facility] [address] [place] [address] Froylan Sweeney MD [address] [address] Health Maintenance Due Date Last Done Comments Pneumococcal Vaccine: 65+ Ye ars (1 of 2 - PCV) 1946 Influenza Vaccine (#1) 2024 Hepatitis B Vaccine Aged Out No longe r eligible based on patient's age to complete this topic Procedures Procedure Name Priority Date/Time Associated Diagnosis Comments PROTEIN ELECTROPHORESIS, SERUM Routine 10/02/2024 10:24 AM EST PTH, INTACT Routine 10/02/2024 10:24 AM EST VITAMIN D 25 HYDROXY Routine 10/02/2024 10:24 AM EST PROTEIN / CREATININE RATIO, URINE Routine 10/02/2024 10:24 AM EST from Last 3 Months Results * (ABNORMAL) Protein, Total, Random Urine w/Creatinine (Protein/Creat Ratio) (10/02/2024 10:24 AM EST) Creatinine, Ur 155.4 Not Estab. mg/dL [facility] Protein, Ur 53.2 Not Estab. mg/dL [facility] Urine Protein/Creati nine Ratio 342(H) 0 - 200 mg/g creat [facility] 10/02/2024 10:2 4 AM EST 10/02/2024 Froylan Sweeney MD LAB URINE ORDERABLES Final Resu lt Performing Organization Address City/[facility]/ZIP Co de Phone Number [facility] [address] [place] [address] * (ABNORMAL) Vitamin D 25 Hydroxy (10/02/2024 10:24 AM EST) Vitamin D, 25-OH, Total 29.5(L) 30.0 - 100.0 ng/mL [facility] Comment: Vitamin D deficiency has been defined by the [place] of Medicine and an Endocrine Society practice guideline as a level of serum 25-OH vitamin D less than 20 ng/mL (1,2). The Endocrine Society went on to further define vitamin D insufficiency as a level between 21 and 29 ng/mL (2). 1. IOM ([place] of Medicine). 2010. Dietary reference ?? intakes for calcium and D. [place]: The ?? National AcademEpiphany Press. 2. Bc MF, Anjum NC, Radha PEOPLES, et al. ?? Evaluation, treatment, and prevention of vitamin D ?? deficiency: an Endocrine Society clinical practice ?? guideline. JCEM. 2010; 96(7):1911-30. 10/02/2024 10:2 4 AM EST 10/02/2024 Froylan Sweeney MD LAB BLOOD ORDERABLES [facility] [address] [place] [address] * Protein electrophoresis, serum (10/02/2024 10:24 AM EST) Total Protein 6.6 6.0 - 8.5 g/dL [facility] [phone] Albumin 3.9 2.9 - 4.4 g/dL [facility] Ttklz-3-Hayagucr 0.2 0.0 - 0.4 g/dL [facility] [phone] Yrntu-7-Bolpghkw 0.7 0.4 - 1.0 g/dL [facility] [phone] Beta Globulin 0.9 0.7 - 1.3 g/dL [facility] [phone] Gamma Globulin in Serum 0.9 0.4 - 1.8 g/dL [facility] [phone] M-Maikel Serum Not Observed Not Observed g/dL [facility] [phone] Globulin, Total 2.7 2.2 - 3.9 g/dL [facility] [phone] A/G Ratio 1.4 0.7 - 1.7 [facility] Please note Comment [facility] [phone] Comment: Protein electrophoresis scan will follow via computer, mail, or belling machine operator delivery. PDF . [facility] 10/02/2024 10:2 4 AM EST 10/02/2024 us Froylan Sweeney MD LAB BLOOD ORDERABLES Final Resu lt [facility] [address] [place] [address] * PTH, Intact (10/02/2024 10:24 AM EST) PTH 61 15 - 65 pg/mL [facility] 10/02/2024 10:2 4 AM EST 10/02/2024 us Froylan Sweeney MD LAB BLOOD ORDERABLES Final Resu lt Performing Organization Address City/[facility]/ZIP Co de Phone Number [facility] [address] [place] [address] from Last [address] [place] [address] MEDICARE [id number]ARE
== END 2024-10-14 11:40 | disposition home or self-care (01) ==
PROVIDERS: PCP Internal Medicine; Visit Provider Internal Medicine
DX: G47.33 Obstructive sleep apnea (adult) (pediatric) (principal); G47.39 Other sleep apnea
CPT/HCPCS: 99213

== ENCOUNTER → 2024-10-14 10:22 | Outpatient (BNVA) | payer MEDICARE, SELFPAY | PROVIDERS: PCP Internal Medicine; Visit Provider Internal Medicine | DX: G47.33 Obstructive sleep apnea (adult) (pediatric) (principal); G47.39 Other sleep apnea | CPT/HCPCS: 99212 ==

== ENCOUNTER 2024-12-16 14:08 | Outpatient (AMB) | payer MEDICARE, SELFPAY ==
[2024-12-16 14:16] VITALS: BP 120/68; PULSE 61; O2SAT 97; BMI 26.0
--- NOTE | 2024-12-16 14:16 | MHC.OFFVIS ---
Vital Signs 12/16/24 14:16 Height 5 ft 9 in Weight 176 lb 5.917 oz BMI 26.0 BP 120/68 Blood Pressure Location Lt brachial Position Sitting Pulse 61 Pulse Source Pulse Oximeter Pulse Oximetry (%) 97 Oxygen Delivery Method Room Air Intake Visit Reasons: sleep apnea Intake Note: pt is here for follow up and doing well. 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 Mazariegos , is here today for follow-up for his use of CPAP. Since we have reduce the CPAP to 13 cm, he is definitely sleeping much better, He has fullface mask, which is quite comfortable, but he likes to try a nasal interface such as nasal air or nasal pillows. He is using CPAP for up to 5-6 hours per night, he has much less daytime sleepiness. Weight has gone up by a few lb. [facility] Medical History Treatment-emergent central sleep apnea JEROD (obstructive sleep apnea) Retrognathia Social History Patient Tobacco Use Status: Never used Tobacco Review of Systems Const All systems reviewed & are unremarkable except as noted in HPI and below Reports snoring (Heavy snoring) Eyes Reports no additional complaints ENT Reports no additional complaints Card Denies chest pain, Denies syncope, Denies irregular heart rhythm, Denies leg edema and Denies dyspnea on exertion Resp Reports no additional complaints, Denies dyspnea on exertion, Reports snoring (Heavy snoring) and Denies wheezing GI Reports heartburn (GERD symptoms being controlled with omeprazole) Reports no additional complaints Musc Reports no additional complaints Skin/Breast Reports system reviewed and no additional complaints, except as documented Neuro Reports no additional complaints and Denies syncope Psych Reports no additional complaints Endo Reports no additional complaints Aller/Immun Denies wheezing Physical Exam Vital Signs: Last Vital Signs Pulse 61 12/16/24 14:16 BP 120/68 12/16/24 14:16 Pulse Ox 97 12/16/24 14:16 Oxygen Delivery Method Room Air 12/16/24 14:16 BMI result Body Mass Index 26.0 Const General: healthy appearing, comfortable, no acute distress, alert and awake Orientation/consciousness: patient oriented x3 HEENT Head: Yes normal to inspection General nose exam: No nasal polyps present and No nasal discharge present Face and sinus: Yes sinuses nontender Mouth: oropharynx abnormals (Slight narrowing of the oropharynx, Mallampati class 3) Teeth and gingiva: other (retroganthia of the lower jaw ) Throat: Yes posterior oropharynx normal Eyes General: appearance normal, both eyes and all related structures Neck Neck: Yes normal visual inspection, Yes no lymphadenopathy, Yes trachea midline, Yes no JVD and Yes other (Neck circumference 15-1/2 inch) Thyroid: Thyroid normal Chest Chest palpation & inspection: normal inspection of the chest, normal palpation of entire chest wall and no tenderness Resp Effort & Inspection: normal respiratory effort Auscultation: clear to auscultation bilaterally, no crackles and wheezes Cardio Palpation: normal PMI Rate: regular rate Rhythm: regular rhythm Heart sounds: no gallops and no murmurs Peripheral pulses: Peripheral pulses 2+ throughout GI Palpation (GI): Soft to palpation, nontender, No hepatosplenomegaly present and no masses Auscultation: normal bowel sounds Back/Spine/Pelvis Thoracic/Lumbar Spine: thoracic and lumbar spine normal to inspection Skin General skin exam: no rashes or lesions noted Neuro General: patient oriented x3 and no focal motor deficits Cranial nerves: Yes CN's II-XII intact bilaterally Extrem General: Yes normal to inspection, Yes no clubbing, cyanosis or edema and Yes no calf tenderness Psych Speech and movement: Normal speech and movement present Results Reviewed Results Reviewed: Compliance report is reviewed and he has used 30/30 nights, 100%. Average use it per night 5 hours 58 minutes There is no air leak. The residual AHI is still 9 which is mostly due to residual central and obstructive apneas. Assessment & Plan Assessment & Plan (1) JEROD (obstructive sleep apnea): Comment: As per home-based sleep study he has moderately severe obstructive sleep apnea, with minimal nocturnal hypoxemia. HE WAS USING CPAP WITH AUTO PAP MODE REGULARLY, BUT HAD RESIDUAL AHI SECONDARY TO OBSTRUCTIVE WELL CENTRAL APNEAS. NOW HE UNDERWENT CPAP TITRATION STUDY IN THE SLEEP LAB, AND DID VERY WELL WITH HIS CPAP SETTING OF 13 CM.. WITH REGULAR USE OF CPAP AT PRESSURE OF 13 CM HE SLEEPS BETTER , WAKES UP MORE REFRESHED. BUT THE COMPLIANCE REPORT STILL INDICATES THAT HE HAS SOME RESIDUAL APNEA. .HE IS CONTENT WITH THAT . WANTS TO TRY A NASAL INTERFACE. I DID ALERT HIM THAT WITH THE NASAL INTERFACE HE MAY HAVE AIR LEAK THROUGH THE MOUTH, . AND IN THAT CASE HE WILL NEED A CHINSTRAP Code(s): G47.33 - Obstructive sleep apnea (adult) (pediatric) Category: Medical Plan: ENCOURAGED TO CONTINUE USING THE CPAP REGULARLY EVERY NIGHT. HE CAN TRY THE NASAL INTERFACE BUT MAY ALTERNATE BETWEEN THAT AND THE FULLFACE MASK. ALERTED THAT HE HAS PUT ON SOME WEIGHT AND HE NEEDS TO LOSE WEIGHT SO THAT IS SLEEP APNEA CAN BE CONTROLLED WITH LESS PRESSURE. Coding Level of Care Code Est Pt Level 3 (15635) Diagnoses JEROD (obstructive sleep apnea) G47.33
--- OUTSIDE RECORDS SUMMARY | 2024-12-16 14:22 | XMS_ITS | Clinical Summary ---
Author Organization [facility] Address [address] [place] [address] Phone Care Team Providers Care Segmental Paving Supervisor Name Role Phone Marilee Tolbert MD Primary Care Provider [phone] Allergies No known active allergies Medications irbesartan (AVAPRO) 75 MG tablet Take 75 mg by mouth every morning 03/19/2024 Active gabapentin (NEURONTIN) 300 MG capsule Take 300 mg by mouth in the morning and 300 mg at noon and 300 mg in the evening. 03/29/2024 Active simvastatin (ZOCOR) 40 MG tablet Take 40 mg by mouth every night Active omeprazole (PriLOSEC) [address] capsule Take 20 mg by mouth 1 (one) time each day Do not crush or chew. Active Active Problems Problem Noted Date Diagnosed Date Hyperkalemia 11/14/2024 Hypertensive chronic kidney disease stage 3 12/2023 Pure hypercholesterolemia 04/11/2024 Chronic kidney disease stage 3B Encounters Date Type Department Care Team Description 11/14/2024 1:30 PM EDT Office Visit [facility] [address] [place] [address] Froylan Sweeney MD Chronic kidney disease stage 3B (HCC) (Primary Dx); Hypertensive chronic kidney disease stage 3; Familial hypercholesterolemia; Hyperkalemia 10/02/2024 Orders Only [facility] [address] [address] Froylan Sweeney MD from Last 3 Months Family History Relation [...] Sign Reading Time Taken Comments Blood Pressure 121/67 11/14/2024 1:22 PM EDT Pulse 71 11/14/2024 1:22 PM EDT Temperature - - Respiratory Rate - - Oxygen Saturation - - Inhaled Oxygen Concentration - - Weight 75.3 kg (166 lb) 11/14/2024 1:22 PM EDT Height - - Body Mass Index - - Plan of Treatment Upcoming Encounters Date Type Department Care Team (Late st Contact Info) Description 06/19/2025 1:15 PM EST [facility] [address] [place] [address] Froylan Sweeney MD [address] [phone] Health Maintenance Due Date Last Done Comments Pneumococcal Vaccine: 50+ Ye ars (1 of 2 - PCV) 1959 Influenza Vaccine (Season Ended) 2025 Hepatitis B Vaccine Aged Out No longe [...] Creatinine, Ur 155.4 Not Estab. mg/dL [facility] Protein, Ur 53.2 Not Estab. mg/dL [facility] Urine Protein/Creati nine Ratio 342(H) 0 - 200 mg/g creat [facility] 10/02/2024 10:2 4 AM EST 10/02/2024 Froylan Sweeney MD LAB URINE ORDERABLES Final Resu lt Performing Organization Address City/[facility]/ZIP Co de Phone Number [facility] [address] [place] [address] * (ABNORMAL) Vitamin D 25 Hydroxy (10/02/2024 10:24 AM EST) Vitamin D, 25-OH, Total 29.5(L) 30.0 - 100.0 ng/mL [facility] Comment: Vitamin D deficiency has been defined by the [place] of Medicine and an Endocrine Society practice guideline as a level of serum 25-OH vitamin D less than 20 ng/mL (1,2). The Endocrine Society went on to further define vitamin D insufficiency as a level between 21 and 29 ng/mL (2). 1. IOM ([place] of Medicine). 2010. Dietary reference ?? intakes for calcium and D. [place]: The ?? National Academies Press. 2. Bc MF, Anjum [place], Radha PEOPLES, et al. ?? Evaluation, treatment, and prevention of vitamin D ?? deficiency: an Endocrine Society clinical practice ?? guideline. JCEM. 2010; 96(7):1911-30. 10/02/2024 10:2 4 AM EST 10/02/2024 us Froylan Sweeney MD LAB BLOOD ORDERABLES Final Resu lt [facility] [address] [place] [address] * Protein electrophoresis, serum (10/02/2024 10:24 AM EST) Total Protein 6.6 6.0 - 8.5 g/dL [facility] Albumin 3.9 2.9 - 4.4 g/dL [facility] [phone] Vtizw-8-Wsjpfsov 0.2 0.0 - 0.4 g/dL [facility] Bfayu-5-Wfgdnyot 0.7 0.4 - 1.0 g/dL [facility] [phone] Beta Globulin 0.9 0.7 - 1.3 g/dL [facility] Gamma Globulin in Serum 0.9 0.4 - 1.8 g/dL [facility] M-Maikel Serum Not Observed Not Observed g/dL [facility] [phone] Globulin, Total 2.7 2.2 - 3.9 g/dL [facility] A/G Ratio 1.4 0.7 - 1.7 [facility] Please note Comment [facility] Comment: Protein electrophoresis scan will follow via computer, mail, or conservation educator delivery. PDF . [facility] [phone] 10/02/2024 10:2 4 AM EST 10/02/2024 us Froylan Sweeney MD LAB BLOOD ORDERABLES Final Resu lt [facility] [address] [place] [address] * PTH, Intact (10/02/2024 10:24 AM EST) PTH 61 15 - 65 pg/mL [facility] 10/02/2024 10:2 4 AM EST 10/02/2024 us Froylan Sweeney MD LAB BLOOD ORDERABLES Final Resu lt [facility] [address] [place] [address] from Last 3 Months Insurance [employer] Care Teams Segmental Paving Supervisor Relationship Specialty Start Date End Date Marilee Tolbert MD [address] [place] [address] PCP - General Internal Medicine 11/14/24
== END 2024-12-16 14:37 | disposition home or self-care (01) ==
LOC: HO.HPS 14:09
PROVIDERS: PCP Internal Medicine; Visit Provider Internal Medicine
DX: G47.33 Obstructive sleep apnea (adult) (pediatric) (principal)
CPT/HCPCS: 99213

== ENCOUNTER → 2024-12-16 14:08 | Outpatient (BNVA) | payer MEDICARE, SELFPAY | PROVIDERS: PCP Internal Medicine; Visit Provider Internal Medicine | DX: G47.33 Obstructive sleep apnea (adult) (pediatric) (principal) | CPT/HCPCS: 99212 ==

== ENCOUNTER 2025-04-22 10:47 | Outpatient (AMB) | payer MEDICARE, SELFPAY ==
[2025-04-22 11:02] VITALS: BP 130/70; PULSE 57; O2SAT 97; BMI 26.4
--- NOTE | 2025-04-22 11:02 | A.OFFVIS_ITS ---
Vital Signs 04/22/25 11:02 Height 5 ft 9 in Weight 178 lb 9.191 oz BMI 26.4 BP 130/70 Blood Pressure Location Lt brachial Position Sitting Pulse 57 Pulse Source Pulse Oximeter Pulse Oximetry (%) 97 Oxygen Delivery Method Room Air Intake Visit Reasons: Sleep apnea Intake Note: pt is here for follow up and states he is stating that he is all over the place in am with events, still tired throughout the day. 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 As per CPAP titration in the sleep lab he required pressure of 13 cm. He is using CPAP with fullface mask, has with he nasal mask he had some air leak through the mouth. He does use it regularly but say is that he still remains tired during the daytime, not necessarily sleepy. His the machine indicates in the morning that he had several events during the night. Review of his compliance report shows that he has residual central apnea., and residual AHI is still 10. This seems to be due to treatment emergent central apneas. [facility] Medical History Treatment-emergent central sleep apnea JEROD (obstructive sleep apnea) Retrognathia Social History Patient Tobacco Use Status: Never used Tobacco Review of Systems Const All systems reviewed & are unremarkable except as noted in HPI and below Reports snoring (Heavy snoring) Eyes Reports no additional complaints ENT Reports no additional complaints Card Denies chest pain, Denies syncope, Denies irregular heart rhythm, Denies leg edema and Denies dyspnea on exertion Resp Reports no additional complaints, Denies dyspnea on exertion, Reports snoring (Heavy snoring) and Denies wheezing GI Reports heartburn (GERD symptoms being controlled with omeprazole) Reports no additional complaints Musc Reports no additional complaints Skin/Breast Reports system reviewed and no additional complaints, except as documented Neuro Reports no additional complaints and Denies syncope Psych Reports no additional complaints Endo Reports no additional complaints Aller/Immun Denies wheezing Physical Exam Vital Signs: Last Vital Signs Pulse 57 04/22/25 11:02 BP 130/70 04/22/25 11:02 Pulse Ox 97 04/22/25 11:02 Oxygen Delivery Method Room Air 04/22/25 11:02 BMI result Body Mass Index 26.4 Const General: healthy appearing, comfortable, no acute distress, alert and awake Orientation/consciousness: patient oriented x3 HEENT Head: Yes normal to inspection General nose exam: No nasal polyps present and No nasal discharge present Face and sinus: Yes sinuses nontender Mouth: oropharynx abnormals (Slight narrowing of the oropharynx, Mallampati class 3) Teeth and gingiva: other (retroganthia of the lower jaw ) Throat: Yes posterior oropharynx normal Eyes General: appearance normal, both eyes and all related structures Neck Neck: Yes normal visual inspection, Yes no lymphadenopathy, Yes trachea midline, Yes no JVD and Yes other (Neck circumference 15-1/2 inch) Thyroid: Thyroid normal Chest Chest palpation & inspection: normal inspection of the chest, normal palpation of entire chest wall and no tenderness Resp Effort & Inspection: normal respiratory effort Auscultation: clear to auscultation bilaterally, no crackles and wheezes Cardio Palpation: normal PMI Rate: regular rate Rhythm: regular rhythm Heart sounds: no gallops and no murmurs Peripheral pulses: Peripheral pulses 2+ throughout GI Palpation (GI): Soft to palpation, nontender, No hepatosplenomegaly present and no masses Auscultation: normal bowel sounds Back/Spine/Pelvis Thoracic/Lumbar Spine: thoracic and lumbar spine normal to inspection Skin General skin exam: no rashes or lesions noted Neuro General: patient oriented x3 and no focal motor deficits Cranial nerves: Yes CN's II-XII intact bilaterally Extrem General: Yes normal to inspection, Yes no clubbing, cyanosis or edema and Yes no calf tenderness Psych Speech and movement: Normal speech and movement present Results Reviewed Results Reviewed: Compliance report shows that he has used 30/30 nights, 100%. Average use it per night 6 hours 34 minutes. Pressure 13 cm. There is no significant air leak. Residual AHI 10.2. Predominantly due to central apneas Assessment & Plan Assessment & Plan (1) JEROD (obstructive sleep apnea): Comment: As per home-based sleep study he has moderately severe obstructive sleep apnea, with minimal nocturnal hypoxemia. HE WAS USING CPAP WITH AUTO PAP MODE REGULARLY, BUT HAD RESIDUAL AHI SECONDARY TO OBSTRUCTIVE WELL CENTRAL APNEAS. NOW HE UNDERWENT CPAP TITRATION STUDY IN THE SLEEP LAB, AND DID VERY WELL WITH HIS CPAP SETTING OF 13 CM.. WITH REGULAR USE OF CPAP AT PRESSURE OF 13 CM HE SLEEPS BETTER , WAKES UP MORE REFRESHED. BUT THE COMPLIANCE REPORT STILL INDICATES THAT HE HAS SOME RESIDUAL APNEA. HE TRY TO USE NASAL AIR BUT WAS HAVING SOME AIR LEAK THROUGH THE MOUTH SO WENT BACK TO FULLFACE MASK F-30 HIS COMPLIANCE REPORT INDICATES THAT HE IS HAVING CENTRAL APNEAS , WITH RESIDUAL AHI 10.2 Code(s): G47.33 - Obstructive sleep apnea (adult) (pediatric) Category: Medical Plan: SEE BELOW (2) Treatment-emergent central sleep apnea: Comment: NOTED ABOVE HE HAD TREATMENT EMERGENT CENTRAL APNEAS CAUSING HIGH RESIDUAL AHI. I THINK BECAUSE OF RESIDUAL CENTRAL APNEAS HE IS NOT GETTING FULL BENEFIT OF HIS . CPAP THERAPY Code(s): G47.39 - Other sleep apnea Category: Medical Plan: PLAN IS TO CUT DOWN THE PRESSURE TO 10 CM AND THEN MONITOR HIS COMPLIANCE. IF HE CONTINUES TO HAVE HIGH RESIDUAL AHI. THEN NEXT STEP WOULD BE TO BRING HIM BACK TO THE SLEEP LAB AND TRY TO USE BIPAP MECHANISM OR ASV. I WANTED TO TRY SMALL DOSE OF ACETAZOLAMIDE, BUT HE IS RELUCTANT TO USE ANY NEW MEDICATION HE SAY IS HE HAS CHRONIC RENAL ISSUES. (3) Retrognathia: Comment: This gentleman is not overly obese. 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 Code(s): M26.19 - Other specified anomalies of jaw-cranial base relationship Category: Medical Plan: HE IS AWARE OF THIS ABNORMALITY AND KNOWS THAT HE WILL NEED TO USE CPAP OR BIPAP FOR INDEFINITE. Coding Level of Care Code Est Pt Level 3 (05477) Diagnoses JEROD (obstructive sleep apnea) G47.33 Treatment-emergent central sleep apnea G47.39 Retrognathia M26.19
== END 2025-04-22 11:45 | disposition home or self-care (01) ==
LOC: HO.HPS 10:48
PROVIDERS: PCP Internal Medicine; Visit Provider Internal Medicine
DX: G47.33 Obstructive sleep apnea (adult) (pediatric) (principal); G47.39 Other sleep apnea; M26.19 Other specified anomalies of jaw-cranial base relationship
CPT/HCPCS: 99213

== ENCOUNTER → 2025-04-22 10:47 | Outpatient (BNVA) | payer MEDICARE, SELFPAY | PROVIDERS: PCP Internal Medicine; Visit Provider Internal Medicine | DX: G47.33 Obstructive sleep apnea (adult) (pediatric) (principal); G47.39 Other sleep apnea; M26.19 Other specified anomalies of jaw-cranial base relationship; Z99.89 Dependence on other enabling machines and devices | CPT/HCPCS: 99212 ==

== ENCOUNTER 2025-06-25 11:12 | Outpatient (AMB) | payer MEDICARE, SELFPAY ==
--- NOTE | 2025-06-25 11:42 | MHC.OFFVIS ---
Vital Signs 06/25/25 11:43 Height 5 ft 9 in Weight 178 lb BMI 26.3 BP 130/62 Blood Pressure Location Lt brachial Position Sitting Pulse 61 Pulse Source Pulse Oximeter Pulse Oximetry (%) 98 Oxygen Delivery Method Room Air Intake Visit Reasons: Obstructive sleep apnea Intake Note: pt is here for follow up of JEROD, and he does feel 100%, breathing is good, he is still using the cpap no conversion to bi-pap. 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 WHEN PRESSURE IS INCREASED, HE STARTS HAVING MORE CENTRAL APNEAS, AND WHEN PRESSURE IS DECREASED, HE STARTS HAVING MORE. OBSTRUCTIVE APNEA WHEN HE HAD CPAP TITRATION IN THE SLEEP LAB THE OPTIMAL RESULTS WERE OBTAINED WITH PRESSURE OF 13 CM, LATER ON AT HOME WHEN HE WAS USING CPAP WITH PRESSURE OF 13 CM HE CAME WITH HIGHER NUMBER OF CENTRAL APNEAS. THAT IS LAST TIME WHEN HE CAME 2 MONTHS AGO, THE PRESSURE WAS ADJUSTED DOWN TO 10 CM. HE CLAIMS THAT HE USES CPAP EVERY NIGHT. HE IS NOT GETTING REFRESHING SLEEP. HE DOES HAVE A BRAIN FOG TYPE OF FEELING DURING THE DAY. HE REMAINS TIRED. I HAD A GOOD DISCUSSION WITH HIM WELL HIS . ACCORDING TO HIS , HE REMAINS SOMEWHAT TIRED AND SLEEPY DURING THE DAYTIME. SHE ALSO THOUGHT THAT THIS MAY BE DUE TO LONG COVID EFFECT ( ESPECIALLY THE BRAIN FOG ) PATIENT IS SOMEWHAT FRUSTRATED AND HE IS EXPRESSING HIS WISHES TO STOP USING CPAP. IT HAS NOT MADE ANY DIFFERENCE IN HIS SLEEP OR HOW HE FEELS DURING THE DAYTIME. THE FEELS THAT THERE MAY BE AN ELEMENT OF SOME DEPRESSION. ANYWAY HE HAS BEEN USING THE CPAP VERY REGULARLY EVERY NIGHT. AND IT IS NOTED THAT HE DOES SLEEP UP TO 6-1/2 HOURS PER NIGHT. [facility] Medical History (Updated 06/25/25 @ 13:30 by Mary Kate Tilley MD) Somnolence, daytime Treatment-emergent central sleep apnea JEROD (obstructive sleep apnea) Retrognathia Social History Patient Tobacco Use Status: Never used Tobacco Review of Systems Const All systems reviewed & are unremarkable except as noted in HPI and below Reports snoring (Heavy snoring) Eyes Reports no additional complaints ENT Reports no additional complaints Card Denies chest pain, Denies syncope, Denies irregular heart rhythm, Denies leg edema and Denies dyspnea on exertion Resp Reports no additional complaints, Denies dyspnea on exertion, Reports snoring (Heavy snoring) and Denies wheezing GI Reports heartburn (GERD symptoms being controlled with omeprazole) Reports no additional complaints Musc Reports no additional complaints Skin/Breast Reports system reviewed and no additional complaints, except as documented Neuro Reports no additional complaints and Denies syncope Psych Reports no additional complaints Endo Reports no additional complaints Aller/Immun Denies wheezing Physical Exam Vital Signs: Last Vital Signs Pulse 61 06/25/25 11:43 BP 130/62 06/25/25 11:43 Pulse Ox 98 06/25/25 11:43 Oxygen Delivery Method Room Air 06/25/25 11:43 BMI result Body Mass Index 26.3 Const General: healthy appearing, comfortable, no acute distress, alert and awake Orientation/consciousness: patient oriented x3 HEENT Head: Yes normal to inspection General nose exam: No nasal polyps present and No nasal discharge present Face and sinus: Yes sinuses nontender Mouth: oropharynx abnormals (Slight narrowing of the oropharynx, Mallampati class 3) Teeth and gingiva: other (retroganthia of the lower jaw ) Throat: Yes posterior oropharynx normal Eyes General: appearance normal, both eyes and all related structures Neck Neck: Yes normal visual inspection, Yes no lymphadenopathy, Yes trachea midline, Yes no JVD and Yes other (Neck circumference 15-1/2 inch) Thyroid: Thyroid normal Chest Chest palpation & inspection: normal inspection of the chest, normal palpation of entire chest wall and no tenderness Resp Effort & Inspection: normal respiratory effort Auscultation: clear to auscultation bilaterally, no crackles and no wheezes Cardio Palpation: normal PMI Rate: regular rate Rhythm: regular rhythm Heart sounds: no gallops and no murmurs Peripheral pulses: Peripheral pulses 2+ throughout GI Palpation (GI): Soft to palpation, nontender, No hepatosplenomegaly present and no masses Auscultation: normal bowel sounds Back/Spine/Pelvis Thoracic/Lumbar Spine: thoracic and lumbar spine normal to inspection Skin General skin exam: no rashes or lesions noted Neuro General: patient oriented x3 and no focal motor deficits Cranial nerves: Yes CN's II-XII intact bilaterally Extrem General: Yes normal to inspection, Yes no clubbing, cyanosis or edema and Yes no calf tenderness Psych Speech and movement: Normal speech and movement present Results Reviewed Results Reviewed: COMPLIANCE REPORT FOR THE LAST 30 NIGHTS SHOWS THAT HE HAS USED EVERY NIGHT AND AVERAGE USE IT PER NIGHT IS 6 HOURS 38 MINUTES. CPAP SETTING 10 CM. THERE IS NO SIGNIFICANT AIR LEAK. RESIDUAL AHI 16, IT IS , MIXED CENTRAL AND OBSTRUCTIVE Assessment & Plan Assessment & Plan (1) JEROD (obstructive sleep apnea): Comment: As per home-based sleep study he has moderately severe obstructive sleep apnea, with minimal nocturnal hypoxemia. HE WAS USING CPAP WITH AUTO PAP MODE REGULARLY, BUT HAD RESIDUAL AHI SECONDARY TO OBSTRUCTIVE WELL CENTRAL APNEAS. HE UNDERWENT CPAP TITRATION STUDY IN THE SLEEP LAB, AND DID VERY WELL WITH HIS CPAP SETTING OF 13 CM.. WITH REGULAR USE OF CPAP AT PRESSURE OF 13 CM HE SLEEPS BETTER , WAKES UP MORE REFRESHED. BUT THE COMPLIANCE REPORT STILL INDICATES THAT HE HAS SOME RESIDUAL APNEA. MORE CENTRAL APNEAS, AT PRESENT RESIDUAL AHI IS 16 INCREASED FROM BEFORE. Code(s): G47.33 - Obstructive sleep apnea (adult) (pediatric) Category: Medical Plan: WILL READJUST THE CPAP TO 13 CM. DISCUSSED ABOUT STARTING ON BIPAP MODE BUT HE DOES NOT WANT TO DO IT. HE IS MORE INTERESTED IN STOPPING TO USE THE CPAP. (2) Treatment-emergent central sleep apnea: Comment: NOTED ABOVE HE HAD TREATMENT EMERGENT CENTRAL APNEAS CAUSING HIGH RESIDUAL AHI. I THINK BECAUSE OF RESIDUAL CENTRAL APNEAS HE IS NOT GETTING FULL BENEFIT OF HIS CPAP THERAPY Code(s): G47.39 - Other sleep apnea Category: Medical Plan: NOTED ABOVE HE DOES NOT WANT TO CHANGE THE MODE TO BIPAP. (3) Somnolence, daytime: Comment: PATIENT DESCRIBES FEELING UNREFRESHED IN THE MORNING, AND SOME SLEEPINESS/BRAIN FOG DURING THE REST OF THE DAY. HE ALSO THINKS THAT THIS MAY BE RESIDUAL FROM THE LONG COVID. Code(s): R40.0 - Somnolence Category: Medical Plan: WE HAD A GOOD DISCUSSION. I TOLD HIM THAT HE MAY BE HAVING RESIDUAL SOMNOLENCE DUE TO POORLY TREATED SLEEP APNEA. ALONG WITH READJUSTMENT OF THE PRESSURE TO 13 CM, I WOULD ADD MODAFINIL 200 MG DAILY, AND HE WILL MONITOR CLOSELY TO SEE IF. THERE IS SOME PROGRESS IF HE DOES NOT FEEL ANY GOOD I THINK THEN HE WILL HAVE TO GO WITHOUT CPAP FOR A WHILE. Medications: New modafinil (Provigil) 100 mg PO DAILY 30 tabs 3RF EDS/ 30 days G47.33 - Obstructive sleep apnea (adult) (pediatric), R40.0 - Somnolence Coding Level of Care Code Est Pt Level 3 (30825) Diagnoses JEROD (obstructive sleep apnea) G47.33 Treatment-emergent central sleep apnea G47.39 Somnolence, daytime R40.0
[2025-06-25 11:43] VITALS: BP 130/62; PULSE 61; O2SAT 98; BMI 26.3
--- OUTSIDE RECORDS SUMMARY | 2025-06-25 22:04 | XMS_ITS | Clinical Summary ---
Author Organization [facility] Address [address] [place] [address] Phone Care Team Providers Care [employer] Name Role Phone Marilee Tolbert MD Primary Care Provider [phone] Allergies No known active allergies Medications gabapentin (NEURONTIN) 300 MG capsule Take 300 mg by mouth in the morning and 300 mg at noon and 300 mg in the evening. 4 Active simvastatin (ZOCOR) 40 MG tablet Take 40 mg by mouth every night Active omeprazole (PriLOSEC) [address] capsule Take 20 mg by mouth 1 (one) time each day Do not crush or chew. Active amLODIPine (NORVASC) 5 MG tablet Take 1 tablet (5 mg total) by mouth 1 (one) time each day 90 tablet 3 5 06/19/20 26 Active irbesartan (AVAPRO) 75 MG tablet Take 75 mg by mouth every morning 4 06/19/20 25 Discontinued Active Problems Problem Noted Date Diagnosed Date Acute nontraumatic kidney injury 06/19/2025 Hyperkalemia 11/14/2024 Hypertensive chronic kidney disease stage 3 0 12/2023 Pure hypercholesterolemia 04/11/2024 Chronic kidney disease stage 3B Encounters Date Type Department Care Team Description 06/19/2025 1:15 PM EST Office Visit [facility] [address] [place] [address] Froylan Sweeney MD Other acute kidney failure (HCC) (Primary Dx); Chronic kidney disease stage 3B (HCC); Hypertensive chronic kidney disease stage 3; Hyperkalemia 04/16/2025 Orders Only [facility] [address] [phone] Froylan Sweeney MD Chronic kidney disease stage 3B (HCC); Hypertensive chronic kidney disease stage 3; Hyperkalemia from Last 3 Months Family History Relation [...] Sign Reading Time Taken Comments Blood Pressure 131/62 06/19/2025 12:56 PM EST Pulse 62 06/19/2025 12:56 PM EST Temperature - - Respiratory Rate - - Oxygen Saturation - - Inhaled Oxygen Concentration - - Weight 78 kg (172 lb) 06/19/2025 12:56 PM EST Height - - Body Mass Index - - Plan of Treatment Upcoming Encounters Date Type Department Care Team (Late st Contact Info) Description 12/18/2025 2:45 PM EDT Office Visit [facility] [address] [phone] Froylan Sweeney MD [address] [phone] Health Maintenance Due Date Last Done Comments Pneumococcal Vaccine: 50+ Ye ars (1 of 2 - PCV) 1959 Influenza Vaccine (#1) 2025 Hepatitis B Vaccine Aged Out No longe r eligible based on patient's age to complete this topic Procedures Procedure Name Priority Date/Time Associated Diagnosis Comments VITAMIN D 25 HYDROXY Routine 06/17/2025 9:02 AM EST Chronic kidney disease stage 3B (HCC) Hypertensive chronic kidney disease stage 3 Hyperkalemia PROTEIN / CREATININE RATIO, URINE Routine 06/17/2025 9:02 AM EST Chronic kidney disease stage 3B (HCC) Hypertensive chronic kidney disease stage 3 Hyperkalemia PTH, INTACT Routine 06/17/2025 9:02 AM EST Chronic kidney disease stage 3B (HCC) Hypertensive chronic kidney disease stage 3 Hyperkalemia RENAL FUNCTION PANEL Routine 06/17/2025 9:02 AM EST Chronic kidney disease stage 3B (HCC) Hypertensive chronic kidney disease stage 3 Hyperkalemia from Last 3 Months Results * (ABNORMAL) Urine Protein / creatinine ratio (06/17/2025 9:02 AM EST) Creatinine, Ur 183.9 Not Estab. mg/dL [facility] Protein, Ur 61.4 Not Estab. mg/dL [facility] Urine Protein/Creati nine Ratio 334(H) 0 - 200 mg/g creat [facility] Urine specimen (specimen) Urine specimen obtained by clean catch procedure / Unknown 06/17/2025 9:02 AM EST 06/17/2025 us Froylan Sweeney MD LAB URINE ORDERABLES Final Resu lt In [facility] [address] [place] [address] * (ABNORMAL) Vitamin D 25 hydroxy (06/17/2025 9:02 AM EST) Vitamin D, 25-OH, Total 27.5(L) 30.0 - 100.0 ng/mL [facility] Comment: Vitamin D deficiency has been defined by the [place] of [employer] and an Endocrine Society practice guideline as a level of serum 25-OH vitamin D less than 20 ng/mL (1,2). The Endocrine Society went on to further define vitamin D insufficiency as a level between 21 and 29 ng/mL (2). 1. IOM ([place] of [employer]). 2010. Dietary reference intakes for calcium and D. [place]: The National Academies Press. 2. Bc MF, Anjum [place], Radha PEOPLES, et al. Evaluation, treatment, and prevention of vitamin D deficiency: an Endocrine Society clinical practice guideline. JCEM. 2010; 96(7):1911-30. Blood specimen (specimen) Venous blood / Unknown 06/17/2025 9:02 AM EST 06/17/2025 Froylan Sweeney MD LAB BLOOD ORDERABLES Final Resu lt [facility] [address] [place] [phone] * (ABNORMAL) PTH, intact (06/17/2025 9:02 AM EST) PTH 92(H) 15 - 65 pg/mL [facility] Blood specimen (specimen) Venous blood / Unknown 06/17/2025 9:02 AM EST 06/17/2025 Froylan Sweeney MD LAB BLOOD ORDERABLES Final Resu lt Performing Organization Address City[facility] Co de Phone Number [facility] [address] [place] [address] * (ABNORMAL) Renal function panel (06/17/2025 9:02 AM EST) Potassium 5.0 3.5 - 5.2 mmol/L [facility] Glucose 106(H) 70 - 99 mg/dL [facility] BUN 32(H) 8 - 27 mg/dL [facility] Creatinine 2.31(H) 0.76 - 1.27 mg/dL [facility] eGFR CKD-EPI CR 2020 27(L) >59 mL/min/1.7 3 [facility] BUN/Creatinine Ratio 14 10 - 24 [facility] Sodium 143 134 - 144 mmol/L [facility] Chloride 109(H) 96 - 106 mmol/L [facility] Bicarbonate (CO2) 21 20 - 29 mmol/L [facility] Calcium 9.1 8.6 - 10.2 mg/dL [facility] Phosphorus 3.2 2.8 - 4.1 mg/dL [facility] Albumin 4.5 3.7 - 4.7 g/dL [facility] Blood specimen (specimen) Venous blood / Unknown 06/17/2025 9:02 AM EST 06/17/2025 us Froylan Sweeney MD LAB BLOOD ORDERABLES Final Resu lt [facility] [address], [address] [place] [address] from Last 3 Months Insurance [employer] Medicare [employer] Care Teams [employer] Relationship Specialty Start Date End Date Marilee Tolbert MD [address] [place] [address] PCP - General Internal Medicine 11/14/24
== END 2025-06-25 12:15 | disposition home or self-care (01) ==
LOC: HO.HPS 11:12
PROVIDERS: PCP Internal Medicine; Visit Provider Internal Medicine
DX: G47.33 Obstructive sleep apnea (adult) (pediatric) (principal); G47.39 Other sleep apnea; R40.0 Somnolence
CPT/HCPCS: 99213

== ENCOUNTER → 2025-06-25 11:12 | Outpatient (BNVA) | payer MEDICARE, SELFPAY | PROVIDERS: PCP Internal Medicine; Visit Provider Internal Medicine | DX: G47.33 Obstructive sleep apnea (adult) (pediatric) (principal); Z99.89 Dependence on other enabling machines and devices; G47.39 Other sleep apnea; R40.0 Somnolence | CPT/HCPCS: 99212 ==